=== PATIENT | female | born 1975 | race Hispanic/Latino ===

== ENCOUNTER 2019-07-15 11:46 | Outpatient (CLI) | payer OTHER ==
--- NOTE | 2019-07-19 10:48 | MMO ---
Bilateral MAMMO Bilat Screen [facility]. CLINICAL HISTORY: Patient is 44 years old and is seen for screening. The patient has no family history of breast cancer. The patient has no personal history of cancer. VIEWS: The views performed were: bilateral craniocaudal with tomosynthesis and bilateral mediolateral oblique with tomosynthesis. FILMS COMPARED: The present examination has been compared to prior imaging studies performed at [facility] on 04/14/2016, and at [facility] on 05/23/2017. This study has been interpreted with the assistance of computer-aided detection. MAMMOGRAM FINDINGS: The breasts are heterogeneously dense, which could obscure a lesion on mammography. Finding 1: There is an oval mass measuring 23 millimeters with obscured margins seen in the upper-outer region of the right breast. Finding 2: There is an equal density, oval mass measuring 24 millimeters with circumscribed margins seen in the left breast at 12 o'clock. IMPRESSION: FINDING 1: MASS IN THE RIGHT BREAST REQUIRES ADDITIONAL EVALUATION. AN ULTRASOUND EXAM IS RECOMMENDED. FINDING 2: MASS IN THE LEFT BREAST REQUIRES ADDITIONAL EVALUATION. AN ULTRASOUND EXAM IS RECOMMENDED. THE RESULTS OF THIS EXAM WERE SENT TO THE PATIENT. ACR BI-RADS Category 0 - Incomplete: Need additional imaging evaluation. [facility] will notify the patient of the need for additional imaging services. MAMMOGRAPHY NOTE: 1. A negative mammogram report should not delay a biopsy if a dominant of clinically suspicious mass is present. 2. Approximately 10% to 15% of breast cancers are not detected by mammography. 3. Adenosis and dense breasts may obscure an underlying neoplasm. Reported by: MALIK HADDAD MD Electonically Signed: [id number]
== END 2019-07-15 11:47 | disposition home or self-care (01) ==
LOC: BICMAMMO 11:46
PROVIDERS: ATTEND Nurse Practitioner Family
DX: Z12.31 Encounter for screening mammogram for malignant neoplasm of breast (principal); N63.10 Unspecified lump in the right breast, unspecified quadrant; N63.20 Unspecified lump in the left breast, unspecified quadrant
CPT/HCPCS: 77063; 77067

== ENCOUNTER 2019-07-22 13:39 | Outpatient (CLI) | payer OTHER ==
--- NOTE | 2019-07-22 14:23 | ULT ---
LIMITED LEFT BREAST ULTRASOUND; LIMITED RIGHT BREAST ULTRASOUND: HISTORY: Bilateral breast masses. CORRELATION: Mammogram from 07/15/2019. FINDINGS: Sonographic evaluation of the 10 o'clock position of the right breast, 6 cm from the nipple, demonstr ates a 2.4 x 1.8 x 1.1 cm cyst, corresponding to the mammographic finding. Sonographic evaluation at the 12 o'clock position of the left breast, 4 cm from the nipple, demonstra hui a 2.2 x 2.1 x 1.1 cm cyst, corresponding to the mammographic finding. IMPRESSION: BI-RADS category 2 - benign findings. Return to annual mammographic screening. POS: OFF
== END 2019-07-22 13:40 | disposition home or self-care (01) ==
LOC: BICULT 13:39
PROVIDERS: ATTEND Nurse Practitioner Family
DX: N63.10 Unspecified lump in the right breast, unspecified quadrant (principal); N63.20 Unspecified lump in the left breast, unspecified quadrant

== ENCOUNTER 2021-07-09 14:35 | Outpatient (CLI) | payer BC | END 2021-07-09 14:36 | disposition home or self-care (01) | LOC: BICMAMMO 14:35 | PROVIDERS: ATTEND Nurse Practitioner Women's Health | DX: N63.15 Unspecified lump in the right breast, overlapping quadrants (principal) | CPT/HCPCS: 77066; G0279 ==